=== PATIENT | female | born 1950 | race Two or more races ===

== ENCOUNTER 2017-05-03 06:16 | Emergency (ER) | payer OTHER ==
[~2017-05-03] VITALS: Ht 149.9 cm; Wt 67.1 kg
[2017-05-03] MEDS ORDERED: SYNTHROID88 MCG (06:25)
[2017-05-04] MEDS ORDERED: XIGDUO XR 5 MG1 EACH (16:16)
[2017-05-05] MEDS ORDERED: MEDROLPACK PO (05:04)
[2017-05-05] MEDS ORDERED: HYDROXYZINE HCL25 MG PO (05:04)
== END 2017-05-03 09:28 | disposition home or self-care (01) ==
LOC: ER 06:16
DX: T78.1XXA Other adverse food reactions, not elsewhere classified, initial encounter (principal); R21 Rash and other nonspecific skin eruption

== ENCOUNTER → 2017-05-04 | Emergency (ER) | payer OTHER ==
[~2017-05-04] VITALS: Ht 180.3 cm; Wt 67.1 kg
[~2017-05-04] MED LIST: HYDROXYZINE HCL25 MG PO; MEDROLPACK PO; SYNTHROID88 MCG; XIGDUO XR 5 MG1 EACH
== END | disposition home or self-care (01) ==
LOC: ER 15:47
DX: T78.1XXA Other adverse food reactions, not elsewhere classified, initial encounter (principal); R21 Rash and other nonspecific skin eruption; L50.0 Allergic urticaria